=== PATIENT | female | born 1990 | race African-American/Black ===

== ENCOUNTER 2022-05-25 15:26 | Emergency (ER) | payer OTHER, SELFPAY ==
[2022-05-25 15:51] VITALS: BP 119/78; PULSE 81; RESP 16; TEMP 36.6; O2SAT 99
--- NOTE | 2022-05-25 16:31 | ED.FEMALEGU ---
HPI - Female Genitourinary General Chief complaint: Urogenital-Female Stated complaint: uti Source: patient, RN notes reviewed and old records reviewed Mode of arrival: ambulatory Limitations: no limitations History of Present Illness HPI Narrative: 31 year old [facility] with complaints of urinary pressure and frequency for the past 4-5 days. patient denies any known feverrs chills or sweats, denies any nausea or vomiting or abdominal pain. Patient reports that she has taken some AZO for her symptoms without resolution of symptoms. Patient denies any CVA tenderness. Patient denies any vaginal itching or discharge denies concern for STD exposure. MD elicited complaint: UTI Related Data Home Medications Medication Instructions Recorded Confirmed desogestrel 0.15 mg-ethinyl 1 tablet PO DAILY 05/25/22 05/25/22 estradiol 0.03 mg tablet (Isibloom) Allergies Allergy/AdvReac Type Severity Reaction Status Date / Time No Known Allergies Allergy Verified 05/25/22 16:45 Review of Systems Review of Systems: CONSTITUTIONAL: Denies fever, chills, or sweats. EYES: Denies visual changes, redness, or discharge. ENT: Denies rhinorrhea, congestion, sore throat, or otalgia. CARDIOVASCULAR: Denies chest pain, palpitations, or edema. RESPIRATORY: Denies cough or dyspnea. GASTROINTESTINAL: Denies abdominal pain, nausea, vomiting, or diarrhea. GENITOURINARY: Positive for dysuria or hematuria. SKIN: Denies rash or itching. MUSCULOSKELETAL: Denies back pain, joint pain, or myalgia. NEUROLOGIC: Denies headache, numbness, or weakness. PSYCHIATRIC: Denies anxiety or depression. All systems reviewed & are unremarkable except as noted in HPI and below PMFSH Past Medical History Medical History (Updated 05/28/22 @ 13:17 by Megan Hager NP) Sepsis related to bladder infection 8 years ago UTI (urinary tract infection) Social History Social History (Updated 05/28/22 @ 13:10 by Megan Hager NP) Smoking status: Never smoker Living arrangements: with family Gender identity (if verbalized by the patient): Female Comments At time of signature, agree with nursing past medical, surgical, social and family history. There is no relevant family history pertinent to the presenting complaint Exam Narrative: GENERAL: Well-appearing, well-nourished, and in no acute distress. HEAD: Normocephalic, atraumatic. EYES: PERRLA and EOMI. ENT: Nares clear, no rhinorrhea or epistaxis. Mucous membranes moist.TM's normal with good light reflex throat pink with no lesions or tonsil swelling NECK: Supple.no lymphadenopathy CHEST: Clear to auscultation. No respiratory distress.SAO2 99% on room air HEART: Regular rate and rhythm. No murmur heard. Normal peripheral pulses. ABDOMEN: Soft, nontender, nondistended, normal active bowel sounds.no CVA tenderness on examiation EXTREMITIES: Normal range of motion. No edema. SKIN: Warm, dry, no rash. NEURO: No focal deficits. Alert and oriented x3. Course Course Level of Care: Express Care Visit Vital Signs Vital signs: Vital Signs Temperature 36.6 C 05/25/22 15:51 Pulse Rate 81 05/25/22 15:51 Respiratory Rate 16 05/25/22 15:51 Blood Pressure 119/78 05/25/22 15:51 Pulse Oximetry 99 05/25/22 15:51 Oxygen Delivery Room Air 05/25/22 15:51 Temperature 36.6 C 05/25/22 15:51 Pulse Rate 81 05/25/22 15:51 Respiratory Rate 16 05/25/22 15:51 Blood Pressure 119/78 05/25/22 15:51 Pulse Oximetry 99 05/25/22 15:51 Oxygen Delivery Room Air 05/25/22 15:51 MDM - Female Genitourinary Differential Diagnosis Differential diagnosis: Likely urinary tract infection, cervicitis, vaginitis, cystitis and other (dysuria) Medical Records Attestation: I reviewed the patient's medical records. Lab Data Attestation: I reviewed the patient's lab results. Lab results narrative: Urine dip: Glucose negative, bilirubin negative, ketones negative, specific gr
== END 2022-05-25 16:50 | disposition home or self-care (01) ==
LOC: EXPCOLL 15:31
PROVIDERS: Emergency Provider Registered Nurse
DX: N39.0 Urinary tract infection, site not specified (principal)
CPT/HCPCS: 81003; 87086; 99213; G0463